=== PATIENT | male | born 1950 | race Caucasian/White ===

== ENCOUNTER 2017-07-10 10:51 | Day surgery (SDC) | payer MEDICARE ==
[~2017-07-10] VITALS: Ht 170.2 cm; Wt 82.5 kg
[~2017-07-10 10:51] MED LIST: ASPI81TA82 PO; CARV12.52 OR; CLOP75 PO; GLIP5 OR; HYDR12.56 PO; LISI-360 PO; METF-324 PO; PROT40TA PO; SIMV80TA OR; SITA100 PO
[2017-07-10 11:30] VITALS: BP 155/75; PULSE 60; RESP 20; O2SAT 96
[2017-07-10] MEDS ORDERED: ASPI-516 CHEW (11:55)
[2017-07-10] MEDS ORDERED: GLIP1TAB52 PO (11:55)
[2017-07-10] MEDS ORDERED: FERR325T18 PO (11:55)
[2017-07-10] MEDS ORDERED: TRAD5TAB PO (11:55)
[2017-07-10] MEDS ORDERED: ATOR80TA45 PO (11:55)
[2017-07-10] MEDS ORDERED: PANT40TA3 PO (11:55)
[2017-07-10] MEDS ORDERED: AMLO10TA2 PO (11:55)
[2017-07-10] MEDS ORDERED: METF-382 PO (11:55)
[2017-07-10] MEDS ORDERED: CLOP75TA PO (11:55)
[2017-07-10] MEDS ORDERED: OMEGCAP PO (11:55)
[2017-07-10] MEDS ORDERED: HYDR25TA5 PO (11:55)
[2017-07-10] MEDS ORDERED: LISI10TA3 PO (11:55)
[2017-07-10] MEDS ORDERED: CARV12.52 PO (11:55)
[2017-07-10] MEDS ORDERED: DAPA1TAB3 PO (11:55)
[2017-07-10] MEDS ORDERED: PROPOFOL 200 MG/20 ML AMP IV ONE (12:00)
[2017-07-10] MEDS ORDERED: MIDAZOLAM HCL 2 MG/2 ML VIAL IV ONE (12:00)
[2017-07-10 12:12] LABS: AUTOMATED NEUTROPHIL # 4.5 TH/MM3 (1.8-7.7); BASOPHIL % 0.5 % (0.0-2.0); EOSINOPHIL # 0.2 TH/MM3 (0-0.4); EOSINOPHIL % 2.3 % (0.0-4.0); HEMATOCRIT 36.8 % (39.0-51.0); HEMO FLAGS DIFF FINAL; LYMPH % 40.3 % (9.0-44.0); LYMPHOCYTE # 3.6 TH/MM3 (1.0-4.8); MEAN CELL VOLUME 87.5 FL (80.0-100.0); MEAN CORPUSCULAR HEMOGLOBIN 28.7 PG (27.0-34.0); MEAN CORPUSCULAR HGB CONC 32.9 % (32.0-36.0); MONO % 7.2 % (0.0-8.0); NEUT % 49.7 % (16.0-70.0); PLATELET COUNT 190 TH/MM3 (150-450); RED CELL DISTRIBUTION WIDTH 14.5 % (11.6-17.2)
[2017-07-10] MEDS ORDERED: METOPROLOL TARTRATE 25 MG TAB PO PRN (12:15)
[2017-07-10] MEDS ORDERED: LACTATED RINGER'S 1000 ML IV PRN (12:15)
[2017-07-10] MEDS ORDERED: NO Heparin, Lovenox, Coumadin at least 12 hours prior to procedure. PRN (12:15)
[2017-07-10] MEDS ORDERED: CHLORHEXIDINE GLUCONATE 2 % 1 PACK (2 CLOTHS) TOPICAL SCH (12:15)
[2017-07-10] MEDS ORDERED: Hold AM Insulin & AM Hypoglycemic medications in diabetic patients PRN (12:15)
[2017-07-10] MEDS ORDERED: SODIUM CHLORID 0.9% 500 ML IV PRN (12:15)
[2017-07-10] MEDS ORDERED: MUPIROCIN 2% OINT 1 APPLIC/GM SYR NASAL SCH (12:15)
[2017-07-10] MEDS ORDERED: CHLORHEXIDINE GLUCONATE 2 % 1 PACK (2 CLOTHS) TOPICAL PRN (12:15)
[2017-07-10 12:21] LABS: APTT (PATIENT) 24.3 SEC (24.3-30.1); PROTHROMBIN TIME - PATIENT 10.7 SEC (9.8-11.6)
[2017-07-10] MEDS ORDERED: VANCOMYCIN HCL 1000 MG VIAL ONE (12:24)
[2017-07-10] MEDS ORDERED: SODIUM CHLOR 0.9% 250 ML INJ 250 ML ONE (12:25)
[2017-07-10 12:30] LABS: BICARBONATE 26.1 MEQ/L (21.0-32.0); POTASSIUM 4.4 MEQ/L (3.5-5.1)
[2017-07-10] MEDS ORDERED: VANCOMYCIN 1000 MG/NS 250 ML IV SCH ×2 (13:00)
[2017-07-10] MEDS ORDERED: GENTAMICIN SULFATE 80 MG/2 ML VIAL ONE ×2 (14:30)
[2017-07-10] MEDS ORDERED: LIDOCAINE HCL 2% 50 ML VIAL ONE (16:47)
--- NOTE | 2017-07-10 18:00 | CATHPROC ---
[facility] HIS Report Study Information Study Number Admission Scheduled Start Study Start [id number] Jul 10 2017 10:51AM 07/10/2017 Jul 10 2017 12:50PM [place] Service Cardiac Pacer/ICD Admit Source Facility Department Other [facility] Natural Science Manager Physician and Clinical Staff Initial Juanito Hunter Carpenter And Joiner Nichole, [place],PACKAGE SEALER MACHINE Other Anesthesia, ORDER FILLER Other Asmita Hill,GLO Recorder Danielle Wyatt BSRN Jonathon Garg,(R) Equipment Time Flavoring Maker Description Size Mfg Part Number Used/Scraped 12:53 [employer] MEDICAL DRAPE, [place] X-RAY 12X17 12X17 D-100 *[id number] Used INTRODUCER SET, 12:53 [employer] FR 5 [id number] *[id number] Used MICROPUNCTURE, STIFFENED INTRODUCER SET, 12:53 [employer] FR 5 [id number] *[id number] Used MICROPUNCTURE, STIFFENED CORMATRIX 17:18 ICD, ECM MEDIUM [id number] Used CARDIOVASCULAR [id number] 17:08 [employer] Sports DRAPE, IOBAN 2 6661EZ 26cm x 20cm Used *[id number] 6661EZ 12:53 [employer] DRAPE, IOBAN 2 6661EZ 26cm x 20cm Used *[id number] TP-1103 12:53 [employer] SUTURE, STRIP PLUS 1/2" * Used *[id number] 12:53 MEDLINE PACER ADHESIVE, MASTISOL 2/3CC 2/3CC 0523-48 Used 12:53 MEDLINE PACER MONTES, LIMB * 2530 *[id number] Used [id number] 12:53 MEDLINE PACER PACK, PACER CUSTOM * Used *[id number] 12:53 MEDLINE PACER PEN, SKIN DUAL W/ RULER * Used *[id number] PROBE COVER, STERILE NL3080 12:53 [employer]ICAL * Used ULTRASOUND W/ GEL *[id number] 17:07 Needle Sponge Count 2 22 Used 17:07 Needle Sponge Count 2 2 Used 17:37 Needle Sponge Count 2 2 Used 17:37 Needle Sponge Count 2 22 Used 17:39 Needle Sponge Count 2 2 Used 17:39 Needle Sponge Count 2 22 Used 17:41 Needle Sponge Count 2 2 Used 17:41 Needle Sponge Count 2 22 Used 17:41 Needle Sponge Count 25 1 Used 17:39 Needle Sponge Count 25 1 Used 17:37 Needle Sponge Count 25 1 Used 17:07 Needle Sponge Count 25 1 Used [id number] *[id number] SUTURE, 0 ETHIBOND [CT1] (CX21D), 8pk SUTURE, 0 ETHIBOND [CT1] (CX21D), 8pk SUTURE, 2-0 VICRYL [CT1] (YOT047Y) SUTURE, 2-0 VICRYL [CT1] (OAE246W) SUTURE, 4-0 VICRYL [PS2] (HKF862P) [id number] 12:53 [employer],WARM AIR CCL * Used *[id number] 17:18 [facility] MEDICAL PACEMAKER, ASSURITY DR LORENZ DDDR [id number] Used [facility] PAD, ELECTROSURGICAL 12:53 * [id number] *[id number] Used SURGICAL GROUNDING ORANGE 16:56 V[employer] MEDTRONIC PLASMABLADE, PEAD 3.0S * [id number] Used [id number] 12:53 [employer] MEDICAL MONA. / * Used *51847 Equipment Model, Serial, Lot Number and Expiration Data Description Model Number Serial Number Lot Number Expiration Date PACEMAKER, ASSURITY DR LORENZ [id number] 12-02-2018 History: Current Medications Medication Dosage/Unit Route Frequency Last Date/Time Taken Statins (any) Beta Andrew PLAVIX ASA History: Allergies Allergy Reaction iohexol PASSED OUT diatrizoate meglumine PASSED OUT gadoteridol PASSED OUT gadodiamide PASSED OUT penicillin G HIVES iodixanol PASSED OUT gadobenic acid PASSED OUT History: Risk Factors Hypertension Previous MS Previous Heart Failure Yes Yes Yes Diabetes Diabetes Therapy Labs Hgb (g/dl) Hct (%) RBC (MIL/MM3) WBC (l/cumm) Platelets (thousands) 11.60-17.00 35.00-51.00 4.00-5.90 4.00-11.00 150.00-450.00 12.1 36.8 4.2 9 190 Glucose (mg/dl) BUN (mg/dl) Creatinine (mg/dl) BUN:Creatinine (1:x) 74.00-106.00 7.00-18.00 0.50-1.30 10.00-20.00 173 17 1.3 13.1 Na (meq/l) K (meq/l) Cl (meq/l) CO2 (mmol/L) Ca (mg/dl) 136.00-145.00 3.50-5.10 98.00-107.00 21.00-32.00 8.50-10.10 138 4.4 104 26.1 8.8 INR (PTT:PT) 0.90-1.10 1 Medication Medication Total Dose (Bolus/Oral) Medication Total Dosage/Unit 2% XYLOCAINE 50 mL Medications (Bolus/Oral) Medication Time Given Dosage/Unit Administered By Reason 2% XYLOCAINE 07/10/2017 5:10:53 PM 50 mL Juanito Black For pain 50 mL 2% XYLOCAINE given in lab by Juanito Black via Subcutaneous. Ordered by Juanito Black. Reas on: For pain. Medication (Drip) Medication Time Given Dosage/Unit Concentration/Unit Diluent (ml) Solution IV Solutions 07/10/2017 4:38:52 PM 0 mL (IV) NaCl .9 IV Solutions given in lab by Anesthesia, ORDER FILLER in Right Antecubital via Peripheral IV. Pump/Drip Flow = 50 ml/hr using NaCl .9. Ordered by Juanito Black. VANCOMYCIN DRIP 07/10/2017 4:43:00 PM 1 g 1 g VANCOMYCIN DRIP given in lab by Anesthesia, ORDER FILLER in Right Antecubital via Peripheral IV. Ordered by Juanito Black. Reason: As per physicians verbal order. Initial Case Assessment Cardiovascular HR NIBP Chest Pain 69 169/75 0 Edema Present Skin color Skin None Normal Warm Neurological State Oriented to time-place- Alert Moves all extremities person Respiration - General Respiration Rate SpO2 (%) (B/min) 20 98 Final Case Assessment Cardiovascular HR NIBP 60 101/53 Edema Present Skin color Skin None Normal Warm Dry Neurological State Oriented to time-place- Alert person Respiration - General Respiration Rate SpO2 (%) (B/min) 18 97 Chronological Log Time Study Chronological Log 16:34:48 Patient arrived via Bed. 16:34:49 Patient Name, D.O.B, / Armband Verified By R.N. 16:34:50 Consent signed by the physician and the patient and verified by the Natural Science Manager staff. 16:34:51 Pre-op and post- op instructions given; patient acknowledges understanding of instruction s. 16:34:52 Verbal Stimulation=2 Physical Stimulation=2 Airway=2 Respiration=2 TOTAL=8. (0=absent, 1= limited, 2=present) 16:35:07 Patient has been NPO for More than 6Hrs. 16:35:08 Skin Breakdown- none 16:35:09 Patient Warmer Placed on the Table. 16:35:12 Disposable Defibrillator Pads Placed On Patient. 16:35:12 Kaya Prominences Protected 16:35:13 A # 20 IV was noted in the Antecubital (right). Grade = ~GRADE~ 16:35:18 History and physical on the chart or being dictated. IV Solutions given in lab by Anesthesia, ORDER FILLER in Right Antecubital via Peripheral IV. Pump/Drip Flow = 50 ml/hr using 16:38:52 NaCl .9. Ordered by Juanito Black. Assessment: Initial Case, HR=69 BPM, JMUZ=076/75 mmhg, Chest Pain=0, Edema=None, Color=Normal, Skin = Warm 16:39:48 Neurological: State=Alert, Ox3, PALACIOS Respiration: Resp=20 B/min, SpO2=98 % 16:39:54 Table restraints applied according to hospital policy 16:39:57 Left Upper Chest Prepped Times Two. 16:40:07 2% CHLORHEXIDINE GLUCONATE WASH AND NASAL SWIPE DONE PRIOR TO PROCEDURE. 16:41:00 Gentamycin 40 mgs placed in flush bowl. 16:43:00 Anesthesia at bedside. Assumes care of patient. 1 g VANCOMYCIN DRIP given in lab by Anesthesia, ORDER FILLER in Right Antecubital via Peripheral IV. Or dered by Sofia, 16:43:00 Juanito. Reason: As per physicians verbal order. 16:43:43 Bovie ground pad applied to: right thigh 17:05:21 MD arrived. First Sponge And Instrument Count Done by Asmita Hill, GLO. 17:06:26 Hypo's: 2, Sponges: 25, Bovie/scratch: 2 Sutures: 11, Blades: 2, Instruments: 26, Syveck Patches: 0 17:07:15 Immediate Presedation assesment performed by physician. 17:07:21 Reference ECG taken Time Out. Correct patient, procedure, procedure equipment, site and side verified with physicia n present. Time 17:10:43 concurred by MD, individual staff and ORDER FILLER. Time Out #2 - Consents verified, patient in correct position, all results are labled and displa yed, safety precautions 17:10:46 taken, antibiotics administered. Time out concurred by MD, individual staff and ORDER FILLER in procedu re 17:10:51 Case Start 50 mL 2% XYLOCAINE given in lab by Juanito Black via Subcutaneous. Ordered by Juanito Black . Reason: For 17:10:53 pain. 17:11:08 Surgical Incision Made. Pocket opened. 17:11:16 17:19:00 A device was explanted. 17:22:25 One antibiotic sponge put into the surgical pocket. 17:24:00 Antibiotic sponge removed from the surgical pocket. 17:25:11 A PACEMAKER, ASSAINSLEY LORENZ DDDR was placed in corematrix envelope and placed in pocket. 17:31:28 Pocket flushed with antibiotic solution Second Sponge And Instrument Count Done by Asmita Hill, GLO. 17:35:00 Hypo's: 2, Sponges: 25, Bovie/scratch: 2 Sutures: ~SUTURE~, Blades: 2, Instruments: ~INSTRU~, Syveck Patches: ~SYVECK PATCH~ 17:36:58 The pocket was closed. 17:39:08 Implant Procedure was performed. generator change 17:39:26 A PPM Implant . (Dual) generator change The Final Sponge And Instrument Count Done by Asmita Hill, GLO. 17:53:00 Hypo's: 2, Sponges: 25, Bovie/scratch: 2 Sutures: 11, Blades: 2, Instruments: 26, Syveck Patches: 0 Assessment: Final Case, HR=60 BPM, ZRDG=558/53 mmhg, Edema=None, Color=Normal, Skin = Warm, Dr harmon 17:54:00 Neurological: State=Alert, Ox3 Respiration: Resp=18 B/min, SpO2=97 % 17:54:21 Cine recording checked. 17:54:24 Holding Area notified of successful intervention. 17:54:27 Bedside Report will be given. 17:54:30 Implantable Device card placed in patient's chart. 17:56:00 Sterile dressing applied to site 17:57:00 Defibrillator and ground pads removed. Skin intact. 17:57:10 No case complications noted. 17:57:10 Case End 18:15:00 Patient moved to stretcher and transported to [facility] in stable condition. End Study - Contrast Media Used In Study Contrast Total Opened (mL) Total Used (mL) Total Wasted (mL) Unspecified 0 0 0 End Study - Maximum Contrast Load Max Contrast Load (mL) 317.3 End Study - Radiation Exposure Fluoro Time (minutes) 0.1 End Study - Patient Disposition Complications Transferred To Interventional Outcome No Telemetry Bed successful
--- NOTE | 2017-07-11 07:45 | MR ---
cc: GAYLE MARSHALL DATE 07/10/2017 INDICATION End-of-life of [place] scientific dual-chamber pacemaker. CanGaroo biologic envelope placed due to the increased risk of infection and for the device stabilization. PROCEDURE PERFORMED 1. Explantation of [employer] dual-chamber pacemaker. 2. Placement of a new [employer] Ervin dual-chamber pacemaker. 3. Placement of CanGar[employer] biologic envelope. ACCESS SITE Left subclavicular area EQUIPMENT USED [employer] CanGaroo ECM biologic envelope, lot number [id number]. St. Ervin model [id number] dual-chamber pacemaker, serial number [id number]. Right atrial lead: Guidant 4135 atrial lead, serial number [id number], placed 11/12/2007. Right ventricle lead: Guidant 4136 ventricle lead, serial number [id number], placed 11/12/2007. LEAD TESTING Right atrial lead: P-wave 2.1 mV. Lead impedance 490 ohms. Pacing threshold 1.0 volts at 0.5 milliseconds. Right ventricle lead: R waves 11.5 mV. Lead impedance 306 ohms, pacing threshold 0.75 volts at 0.5 milliseconds. Parameters: mode DDDR, lower rate 60, upper rate 120. DIAGNOSIS Successful replacement of end-of-life dual-chamber pacemaker using St. Ervin dual-chamber device and CanGaroo biologic envelope. DISPOSITION Mr. Barnes will be monitored on telemetry after his procedure. He will be discharged home later today. I will see him back for a wound check and chronic device reprogramming in our office within two weeks. He will then see Dr. Barr, his primary corncob pipe supervisor, for long-term device followup. MD TRAN Albarado/DELGADO /5:52 PM /7:42 AM AV
--- NOTE | 2017-07-11 18:40 | EKG ---
Date Performed: 07/10/2017 Time Performed: 12:04:06 PTAGE: 67 years EKG: Ventricular pacing. Pacemaker rhythm - no further analysis Abnormal ECG NO PREVIOUS TRACING DOCTOR: Otilia Delgadillo Interpretating Date/Time 07/11/2017 18:36:20
== END 2017-07-10 19:52 | disposition home or self-care (01) ==
LOC: HDOC 10:51 → HDIC 10:52 → HDOC 19:52
PROVIDERS: ATTEND Internal Medicine Interventional Cardiology
DX: Z45.010 Encounter for checking and testing of cardiac pacemaker pulse generator [battery] (principal); I45.9 Conduction disorder, unspecified; I50.9 Heart failure, unspecified; I10 Essential (primary) hypertension; E11.9 Type 2 diabetes mellitus without complications
CPT/HCPCS: 33228; 80048; 85025; 85610; 85730; 93005; C1785; J1580; J2250; J3010; J3370; J7050